=== PATIENT | female | born 1965 | race Caucasian/White ===

== ENCOUNTER → 2017-02-02 | Outpatient (CLI) | payer BC ==
--- NOTE | 2017-02-02 10:16 | DIAGNOSTIC IMAGING REPORT ---
ULTRASOUND KIDNEYS AND BLADDER CLINICAL HISTORY: Renal neoplasm. COMPARISON STUDY: Abdominal CT dated 06/30/2016. TECHNIQUE: Real-time, grayscale, and color flow sonography of the kidneys and bladder is performed. Images are reviewed in the transverse and longitudinal planes. FINDINGS: Kidneys: The kidneys are normal in size and echotexture. The right kidney measures 9.0 x 4.9 x 5.5 cm and the left kidney measures 9.6 x 5.6 x 5.7 cm. There is no hydronephrosis. No shadowing renal calculi are identified. A 1.6 cm indeterminant lesion is seen in the upper pole of the left kidney. No perinephric fluid is identified. Bladder: The bladder is normal in appearance. Bilateral ureteral jets were seen. IMPRESSION: 1. The kidneys are normal in size and without hydronephrosis. 2. The bladder is normal as visualized. 3. A 1.6 cm indeterminant lesion is again seen in the upper pole of left kidney. When correlated with the 06/30/2016 CT findings renal cell carcinoma remains the diagnosis of exclusion. Electronically signed by: Jimbo Giordano M.D. 02/02/2017 10:15 AM Dictated Date/Time: 02/02/2017 10:12 AM
== END | disposition home or self-care (01) ==
LOC: C.ULTR 09:13
PROVIDERS: ATTEND Urology
DX: D49.519 Neoplasm of unspecified behavior of unspecified kidney (principal)

== ENCOUNTER → 2017-02-26 | Outpatient (CLI) | payer BC ==
--- NOTE | 2017-02-26 08:43 | DIAGNOSTIC IMAGING REPORT ---
CHEST 2 VIEWS ROUTINE CLINICAL HISTORY: ASTHMA (493), COUGH (786.2), SOB(786.05) fever COMPARISON STUDY: No previous studies for comparison. FINDINGS: The bones soft tissues and hemidiaphragms are normal. The cardiomediastinal silhouette is normal. The lungs are clear. The pulmonary vasculature is normal. IMPRESSION: Negative chest. Electronically signed by: Tom Servin M.D. 02/26/2017 8:41 AM Dictated Date/Time: 02/26/2017 8:40 AM
== END | disposition home or self-care (01) ==
LOC: C.RADBBURG 08:18
PROVIDERS: ATTEND Physician Assistant
DX: J45.909 Unspecified asthma, uncomplicated (principal); R05 Cough; R06.02 Shortness of breath

== ENCOUNTER → 2018-02-18 | Outpatient (CLI) | payer BC ==
--- NOTE | 2018-02-18 12:27 | DIAGNOSTIC IMAGING REPORT ---
EXAMINATION: RENAL ULTRASOUND CLINICAL HISTORY: N28.1 Renal cyst COMPARISON STUDY: January 2017 FINDINGS: The right kidney measures 9.1 cm. The left kidney measures 9.7 cm. There is no evidence of hydronephrosis. There is a stable 1 cm hypoechoic focus within the mid to upper pole the left kidney. This demonstrates internal echoes and is therefore indeterminate. It appears minimally smaller than on the preceding study. No bladder abnormalities are visualized. Bilateral ureteral jets were visualized. IMPRESSION : Slight interval decrease in the size of indeterminate 1 cm left renal mass. Electronically signed by: Santiago Vincent M.D. 02/18/2018 12:26 PM Dictated Date/Time: 02/18/2018 12:24 PM
== END | disposition home or self-care (01) ==
LOC: C.ULTR 11:35
PROVIDERS: ATTEND Urology
DX: N28.1 Cyst of kidney, acquired (principal)